=== PATIENT | female | born 1995 | race Caucasian/White ===

== ENCOUNTER → 2016-09-06 | Outpatient (CLI) | payer OTHER | LOC: KOH-I 09-04 16:30 | DX: R51 Headache (principal) | CPT/HCPCS: 70450 ==

== ENCOUNTER 2016-11-11 23:54 | Emergency (ER) | payer BC | END 2016-11-12 02:05 | disposition left against medical advice (07) | LOC: ER1 23:54 | DX: Z53.21 Procedure and treatment not carried out due to patient leaving prior to being seen by health care provider (principal) ==

== ENCOUNTER 2016-11-12 20:31 | Emergency (ER) | payer BC ==
[2016-11-13 00:17] LABS: HEMOGLOBIN 13.5 gm/dl (12.3-15.3); RED BLOOD COUNT 4.66 M/UL (4.00-5.10); WHITE BLOOD COUNT 7.6 K/UL (4.5-11.0)
[2016-11-13 00:25] LABS: BUN/CREATININE RATIO 20 (0-10)
== END 2016-11-13 05:06 | disposition home or self-care (01) ==
LOC: ER1 20:31
PROVIDERS: Emergency Medicine
DX: R10.9 Unspecified abdominal pain (principal); Z88.8 Allergy status to other drugs, medicaments and biological substances
CPT/HCPCS: 36415; 76830; 80053; 81001; 83690; 84703; 85025; 96361; 96374; 99284; J2405; J7030; J7050; Q9962